=== PATIENT | female | born 1960 | race Caucasian/White ===

== ENCOUNTER 2017-01-31 16:53 | Inpatient (IN) | payer MEDICARE, SELFPAY ==
[~2017-01-31] VITALS: Ht 160 cm; Wt 86.8 kg
[~2017-01-31 16:53] MED LIST: ADULT LOW DOSE81 MG PO; ALLERCLEAR10 MG PO; BENADRYL 25MG C25 MG PO; CALCIUM 600 +1 EAC3 PO; COLACE 100MG C100 MG PO; DAKIN'S SOLUTI500 ML TOP; FLONASE 0.05% N16 GM; HUMALOG 10100 UNITS/ SQ; LANTUS SOL100 UNIT/1 SQ; LEVOTHYROXINE75 MCG PO; LISINOPRIL10 MG PO; LOPRESSOR 50 MG50 MG PO; NEURONTIN 100100 MG PO; PRAVACHOL20 MG PO; PRINIVIL10 MG PO; PROAIR HFA8.5 GM INH; SENOKOT-S TABL1 EACH PO; TYLENOL 325MG325 MG PO; ZANAFLEX 4 MG TA4 MG PO; ZOFRAN4 MG PO; ZYVOX600 MG PO
[2017-01-31 18:34] LABS: HEMOGLOBIN 11.7 gm/dl (12.3-15.3); RED BLOOD COUNT 4.17 M/UL (4.00-5.10)
[2017-01-31 18:52] LABS: BUN/CREATININE RATIO 8 (0-10)
[2017-02-01] MEDS ORDERED: CLARITIN 10MG T10 MG PO (03:41)
[2017-02-01] MEDS ORDERED: METOPROLOL TART50 MG PO (03:41)
[2017-02-01] MEDS ORDERED: NEURONTIN 100100 MG PO (03:42)
[2017-02-01] MEDS ORDERED: VENTOLIN/PROVE0.5 ML INH (03:43)
[2017-02-01] MEDS ORDERED: HUMALOG100 UNIT/1 SQ (03:45)
[2017-02-01] MEDS ORDERED: LANTUS100 UNIT/1 SQ (03:45)
[2017-02-01 07:20] LABS: HEMOGLOBIN 11.2 gm/dl (12.3-15.3); WHITE BLOOD COUNT 23.7 K/UL (4.5-11.0)
[2017-02-02 05:39] LABS: WHITE BLOOD COUNT 23.7 K/UL (4.5-11.0)
[2017-02-02 05:45] LABS: RED BLOOD COUNT 3.57 M/UL (4.00-5.10)
[2017-02-02 05:56] LABS: BUN/CREATININE RATIO 30 (0-10)
[2017-02-03 05:34] LABS: HEMOGLOBIN 10.2 gm/dl (12.3-15.3); RED BLOOD COUNT 3.68 M/UL (4.00-5.10)
[2017-02-03 05:35] LABS: WHITE BLOOD COUNT 16.5 K/UL (4.5-11.0)
[2017-02-03 05:59] LABS: BUN/CREATININE RATIO 20 (0-10)
[2017-02-04 05:55] LABS: HEMOGLOBIN 10.7 gm/dl (12.3-15.3); RED BLOOD COUNT 3.88 M/UL (4.00-5.10); WHITE BLOOD COUNT 17.9 K/UL (4.5-11.0)
[2017-02-04 06:14] LABS: BUN/CREATININE RATIO 8 (0-10)
[2017-02-05 06:41] LABS: BUN/CREATININE RATIO 10 (0-10)
[2017-02-05 06:55] LABS: HEMOGLOBIN 10.8 gm/dl (12.3-15.3); RED BLOOD COUNT 3.92 M/UL (4.00-5.10); WHITE BLOOD COUNT 14.4 K/UL (4.5-11.0)
[2017-02-06 05:09] LABS: HEMOGLOBIN 10.2 gm/dl (12.3-15.3); RED BLOOD COUNT 3.76 M/UL (4.00-5.10); WHITE BLOOD COUNT 14.1 K/UL (4.5-11.0)
[2017-02-06 05:16] LABS: BUN/CREATININE RATIO 10 (0-10)
[2017-02-07 06:56] LABS: HEMOGLOBIN 10.4 gm/dl (12.3-15.3); RED BLOOD COUNT 3.83 M/UL (4.00-5.10); WHITE BLOOD COUNT 12.5 K/UL (4.5-11.0)
[2017-02-07 07:19] LABS: BUN/CREATININE RATIO 13 (0-10)
[2017-02-08 06:16] LABS: HEMOGLOBIN 10.4 gm/dl (12.3-15.3); RED BLOOD COUNT 3.83 M/UL (4.00-5.10); WHITE BLOOD COUNT 10.1 K/UL (4.5-11.0)
[2017-02-08 06:42] LABS: BUN/CREATININE RATIO 14 (0-10)
[2017-02-09] MEDS ORDERED: COLACE 100MG C100 MG PO (20:43)
[2017-02-09] MEDS ORDERED: LORTAB 7.5-3251 EACH PO (20:45)
[2017-02-09] MEDS ORDERED: PROTONIX 40 MG40 MG PO ×2 (21:06→21:08)
[2017-02-09] MEDS ORDERED: LANTUS100 UNIT/1 SQ (21:29)
[2017-03-19] MEDS ORDERED: DOXYCYCLINE HY100 MG PO (08:46)
[2017-03-19] MEDS ORDERED: NEXIUM40 MG PO (08:46)
== END 2017-02-09 22:12 | disposition home or self-care (01) | DRG 580 ==
LOC: ER1 16:53 → M/S 23:43 → ZEROF 23:43 → M/S 02-01 03:16
PROVIDERS: Emergency Medicine; Internal Medicine Infectious Disease; Physician Assistant Medical; Surgery; ADMIT Internal Medicine
PROC: 0J960ZZ Drainage of Chest Subcutaneous Tissue and Fascia, Open Approach (ICD-10-PCS; principal; 2017-02-01 10:35)
DX: N61.1 Abscess of the breast and nipple (principal); N39.0 Urinary tract infection, site not specified; I10 Essential (primary) hypertension; J45.909 Unspecified asthma, uncomplicated; M79.7 Fibromyalgia; G62.9 Polyneuropathy, unspecified; K21.9 Gastro-esophageal reflux disease without esophagitis; K57.90 Diverticulosis of intestine, part unspecified, without perforation or abscess without bleeding; B96.89 Other specified bacterial agents as the cause of diseases classified elsewhere; E87.6 Hypokalemia; J01.90 Acute sinusitis, unspecified; K59.00 Constipation, unspecified; K20.9 Esophagitis, unspecified; E03.9 Hypothyroidism, unspecified; R13.10 Dysphagia, unspecified; R13.13 Dysphagia, pharyngeal phase; E11.65 Type 2 diabetes mellitus with hyperglycemia; Z86.14 Personal history of Methicillin resistant Staphylococcus aureus infection; Z90.710 Acquired absence of both cervix and uterus; Z88.0 Allergy status to penicillin; Z88.2 Allergy status to sulfonamides; Z80.3 Family history of malignant neoplasm of breast; Z83.3 Family history of diabetes mellitus; Z84.1 Family history of disorders of kidney and ureter; Z84.89 Family history of other specified conditions
CPT/HCPCS: 36415; 71260; 74022; 80048; 80053; 80202; 81001; 82962; 83036; 83605; 83690; 83735; 84443; 84484; 85025; 85027; 87040; 87070; 87077; 87086; 87186; 87205; 93005; 94640; 94664; 96374; 96375; 99284; J0690; J0692; J0696; J1200; J1885; J1956; J2270; J2405; J2550; J2930; J3370; J7050; J7070; J7120; Q9962

== ENCOUNTER → 2017-02-10 | Outpatient (CLI) | payer MEDICARE, SELFPAY ==
[~2017-02-10] MED LIST changes: +CLARITIN 10MG T10 MG PO; +DOXYCYCLINE HY100 MG PO; +HUMALOG100 UNIT/1 SQ; +LANTUS100 UNIT/1 SQ; +LORTAB 7.5-3251 EACH PO; +METOPROLOL TART50 MG PO; +NEXIUM40 MG PO; +PROTONIX 40 MG40 MG PO; +VENTOLIN/PROVE0.5 ML INH
== END ==
LOC: OPSV 08:30
DX: N61.1 Abscess of the breast and nipple (principal); B95.61 Methicillin susceptible Staphylococcus aureus infection as the cause of diseases classified elsewhere
CPT/HCPCS: 96365; J0696

== ENCOUNTER → 2017-02-11 | Outpatient (CLI) | payer MEDICARE, SELFPAY ==
[~2017-02-11] VITALS: Ht 160 cm; Wt 81.6 kg
== END ==
LOC: OPSV 09:33
DX: N61.1 Abscess of the breast and nipple (principal); B95.61 Methicillin susceptible Staphylococcus aureus infection as the cause of diseases classified elsewhere
CPT/HCPCS: 96365; J0696

== ENCOUNTER → 2017-02-12 | Outpatient (CLI) | payer MEDICARE, SELFPAY | LOC: OPSV 09:51 | DX: N61.1 Abscess of the breast and nipple (principal); B95.61 Methicillin susceptible Staphylococcus aureus infection as the cause of diseases classified elsewhere | CPT/HCPCS: 96365; J0696 ==

== ENCOUNTER → 2017-02-13 | Outpatient (CLI) | payer MEDICARE, SELFPAY ==
[~2017-02-13] VITALS: Ht 160 cm; Wt 81.6 kg
== END ==
LOC: OPSV 09:49
DX: N61.1 Abscess of the breast and nipple (principal); B95.61 Methicillin susceptible Staphylococcus aureus infection as the cause of diseases classified elsewhere
CPT/HCPCS: 96365; J0696

== ENCOUNTER → 2017-02-14 | Outpatient (CLI) | payer MEDICARE, SELFPAY ==
[~2017-02-14] VITALS: Ht 160 cm; Wt 81.6 kg
== END ==
LOC: OPSV 09:46
DX: N61.1 Abscess of the breast and nipple (principal); B95.61 Methicillin susceptible Staphylococcus aureus infection as the cause of diseases classified elsewhere
CPT/HCPCS: 96365; J0696

== ENCOUNTER → 2017-02-15 | Outpatient (CLI) | payer MEDICARE, SELFPAY ==
[~2017-02-15] VITALS: Ht 160 cm; Wt 81.6 kg
== END ==
LOC: OPSV 09:32
DX: N61.1 Abscess of the breast and nipple (principal); B95.61 Methicillin susceptible Staphylococcus aureus infection as the cause of diseases classified elsewhere
CPT/HCPCS: 96365; J0696

== ENCOUNTER → 2017-02-16 | Outpatient (CLI) | payer MEDICARE, SELFPAY | LOC: OPSV 07:55 | DX: N61.1 Abscess of the breast and nipple (principal); B95.61 Methicillin susceptible Staphylococcus aureus infection as the cause of diseases classified elsewhere | CPT/HCPCS: 96365; J0696 ==

== ENCOUNTER → 2017-02-17 | Outpatient (CLI) | payer MEDICARE, SELFPAY ==
[~2017-02-17] VITALS: Ht 160 cm; Wt 81.6 kg
== END ==
LOC: OPSV 07:54
DX: N61.1 Abscess of the breast and nipple (principal); B95.61 Methicillin susceptible Staphylococcus aureus infection as the cause of diseases classified elsewhere
CPT/HCPCS: 96365; J0696

== ENCOUNTER → 2017-02-18 | Outpatient (CLI) | payer MEDICARE, SELFPAY ==
[~2017-02-18] VITALS: Ht 160 cm; Wt 81.6 kg
== END ==
LOC: OPSV 12:13
DX: N61.1 Abscess of the breast and nipple (principal); B95.61 Methicillin susceptible Staphylococcus aureus infection as the cause of diseases classified elsewhere
CPT/HCPCS: 96365; G0463; J0696

== ENCOUNTER → 2017-02-19 | Outpatient (CLI) | payer MEDICARE, SELFPAY | LOC: OPSV 06:53 | DX: N61.1 Abscess of the breast and nipple (principal) | CPT/HCPCS: G0463 ==

== ENCOUNTER → 2017-02-20 | Outpatient (CLI) | payer MEDICARE, SELFPAY | LOC: OPSV 06:48 | DX: N61.1 Abscess of the breast and nipple (principal) | CPT/HCPCS: G0463 ==

== ENCOUNTER → 2017-02-22 | Outpatient (CLI) | payer MEDICARE, SELFPAY | LOC: OPSV 07:00 | DX: N61.1 Abscess of the breast and nipple (principal) | CPT/HCPCS: G0463 ==

== ENCOUNTER → 2017-02-23 | Outpatient (CLI) | payer MEDICARE, SELFPAY | LOC: OPSV 08:22 | DX: N61.1 Abscess of the breast and nipple (principal) | CPT/HCPCS: G0463 ==

== ENCOUNTER → 2017-02-24 | Outpatient (CLI) | payer MEDICARE, SELFPAY | LOC: OPSV 08:30 | DX: N61.1 Abscess of the breast and nipple (principal) | CPT/HCPCS: G0463 ==

== ENCOUNTER → 2017-02-25 | Outpatient (CLI) | payer MEDICARE, OTHER | LOC: OPSV 06:37 | DX: N61.1 Abscess of the breast and nipple (principal) | CPT/HCPCS: G0463 ==

== ENCOUNTER → 2017-02-26 | Outpatient (CLI) | payer MEDICARE, OTHER | LOC: OPSV 07:00 | DX: N61.1 Abscess of the breast and nipple (principal) | CPT/HCPCS: G0463 ==

== ENCOUNTER → 2017-02-27 | Outpatient (CLI) | payer MEDICARE, OTHER | LOC: OPSV 07:00 | DX: N61.1 Abscess of the breast and nipple (principal) | CPT/HCPCS: G0463 ==

== ENCOUNTER → 2017-02-28 | Outpatient (CLI) | payer MEDICARE, OTHER | LOC: OPSV 07:00 | DX: N61.1 Abscess of the breast and nipple (principal) | CPT/HCPCS: 87070; 87077; 87186; 87205; G0463 ==

== ENCOUNTER → 2017-03-01 | Outpatient (CLI) | payer MEDICARE, OTHER | LOC: OPSV 06:59 | DX: N61.1 Abscess of the breast and nipple (principal) | CPT/HCPCS: G0463 ==

== ENCOUNTER → 2017-03-02 | Outpatient (CLI) | payer MEDICARE, OTHER | LOC: OPSV 07:00 | DX: N61.1 Abscess of the breast and nipple (principal) | CPT/HCPCS: G0463 ==

== ENCOUNTER → 2017-03-03 | Outpatient (CLI) | payer MEDICARE, OTHER | LOC: OPSV 07:00 | DX: N61.1 Abscess of the breast and nipple (principal) | CPT/HCPCS: G0463 ==

== ENCOUNTER → 2017-03-04 | Outpatient (CLI) | payer MEDICARE, OTHER | LOC: OPSV 06:47 | DX: N61.1 Abscess of the breast and nipple (principal) | CPT/HCPCS: G0463 ==

== ENCOUNTER → 2017-03-06 | Outpatient (CLI) | payer MEDICARE, OTHER | LOC: OPSV 06:45 | DX: N61.1 Abscess of the breast and nipple (principal) | CPT/HCPCS: G0463 ==

== ENCOUNTER → 2017-03-07 | Outpatient (CLI) | payer MEDICARE, MEDICAID | LOC: OPSV 06:40 | DX: N61.1 Abscess of the breast and nipple (principal) | CPT/HCPCS: G0463 ==

== ENCOUNTER → 2017-03-08 | Outpatient (CLI) | payer MEDICARE, OTHER | LOC: OPSV 06:52 | DX: N61.1 Abscess of the breast and nipple (principal) | CPT/HCPCS: G0463 ==

== ENCOUNTER → 2017-03-09 | Outpatient (CLI) | payer MEDICARE, OTHER | LOC: OPSV 08:30 | DX: N61.1 Abscess of the breast and nipple (principal) | CPT/HCPCS: G0463 ==

== ENCOUNTER → 2017-03-10 | Outpatient (CLI) | payer MEDICARE, OTHER | LOC: OPSV 08:30 | DX: N61.1 Abscess of the breast and nipple (principal) | CPT/HCPCS: G0463 ==

== ENCOUNTER → 2017-03-11 | Outpatient (CLI) | payer MEDICARE, OTHER | LOC: OPSV 06:47 | DX: N61.1 Abscess of the breast and nipple (principal) | CPT/HCPCS: G0463 ==

== ENCOUNTER → 2017-03-12 | Outpatient (CLI) | payer MEDICARE, OTHER | LOC: OPSV 06:45 | DX: N61.1 Abscess of the breast and nipple (principal) | CPT/HCPCS: G0463 ==

== ENCOUNTER → 2017-03-13 | Outpatient (CLI) | payer MEDICARE, OTHER | LOC: OPSV 07:00 | DX: N61.1 Abscess of the breast and nipple (principal) | CPT/HCPCS: G0463 ==

== ENCOUNTER → 2017-03-15 | Outpatient (CLI) | payer MEDICARE, OTHER | LOC: OPSV 07:00 | DX: N61.1 Abscess of the breast and nipple (principal) | CPT/HCPCS: G0463 ==

== ENCOUNTER → 2017-03-16 | Outpatient (CLI) | payer MEDICARE, OTHER | LOC: OPSV 07:00 | DX: N61.1 Abscess of the breast and nipple (principal) | CPT/HCPCS: G0463 ==

== ENCOUNTER → 2017-03-17 | Outpatient (CLI) | payer MEDICARE, OTHER | LOC: OPSV 07:00 | DX: N61.1 Abscess of the breast and nipple (principal) | CPT/HCPCS: G0463 ==

== ENCOUNTER → 2017-03-18 | Outpatient (CLI) | payer MEDICARE, OTHER | LOC: OPSV 07:00 | DX: N61.1 Abscess of the breast and nipple (principal) | CPT/HCPCS: G0463 ==

== ENCOUNTER → 2017-03-19 | Day surgery (SDC) | payer MEDICARE, OTHER ==
[~2017-03-19] VITALS: Ht 160 cm; Wt 83.0 kg
== END | disposition home or self-care (01) ==
LOC: OR 07:05
PROVIDERS: Internal Medicine Gastroenterology
PROC: 0DB68ZX Excision of Stomach, Via Natural or Artificial Opening Endoscopic, Diagnostic (ICD-10-PCS; principal; 2017-03-19 10:45)
DX: K21.0 Gastro-esophageal reflux disease with esophagitis (principal); K22.9 Disease of esophagus, unspecified; I10 Essential (primary) hypertension; E11.9 Type 2 diabetes mellitus without complications; E66.9 Obesity, unspecified; Z88.0 Allergy status to penicillin; Z88.2 Allergy status to sulfonamides; Z88.8 Allergy status to other drugs, medicaments and biological substances; Z79.4 Long term (current) use of insulin; Z79.82 Long term (current) use of aspirin; Z79.899 Other long term (current) drug therapy; Z98.51 Tubal ligation status; Z90.710 Acquired absence of both cervix and uterus
CPT/HCPCS: 82962; J2250; J3010; J7030

== ENCOUNTER → 2017-03-20 | Outpatient (CLI) | payer MEDICARE, OTHER | LOC: OPSV 07:00 | DX: N61.1 Abscess of the breast and nipple (principal) | CPT/HCPCS: G0463 ==

== ENCOUNTER → 2020-11-28 | Outpatient (CLI) | payer MEDICARE, OTHER ==
[~2020-11-28] MED LIST changes: +ASPIRIN EC81 MG PO; +BRILINTA 90 MG90 MG PO; +BYDUREON P2 MG/0.65 SQ; +CRESTOR10 MG PO; +EXTINA50 GM TP; +TRESIBA100 UNIT/1 SQ; +ZANAFLEX2 MG PO
== END ==
LOC: MAMO 10:45
DX: Z12.31 Encounter for screening mammogram for malignant neoplasm of breast (principal)
CPT/HCPCS: 77063; 77067

== ENCOUNTER → 2021-03-16 | Outpatient (CLI) | payer MEDICARE ==
[~2021-03-16] VITALS: Ht 160 cm; Wt 88.9 kg
== END ==
LOC: OPSV 10:53
DX: M81.0 Age-related osteoporosis without current pathological fracture (principal)
CPT/HCPCS: 96372

== ENCOUNTER → 2021-04-25 | Outpatient (CLI) | payer MEDICARE | LOC: DTC 12:30 | DX: E11.9 Type 2 diabetes mellitus without complications (principal) | CPT/HCPCS: G0108 ==

== ENCOUNTER → 2021-05-11 | Outpatient (CLI) | payer MEDICARE | LOC: EXRD 14:07 | DX: M79.604 Pain in right leg (principal); M79.605 Pain in left leg | CPT/HCPCS: 93922; 93925 ==

== ENCOUNTER → 2021-06-27 | Outpatient (CLI) | payer MEDICARE | LOC: HEART 5 08:00 | DX: I20.9 Angina pectoris, unspecified (principal) | CPT/HCPCS: 78452; A9502; J2785 ==

== ENCOUNTER → 2021-12-25 | Outpatient (CLI) | payer MEDICARE, OTHER | LOC: MAMO 12:34 | DX: Z12.31 Encounter for screening mammogram for malignant neoplasm of breast (principal) | CPT/HCPCS: 77063; 77067 ==

== ENCOUNTER → 2022-03-08 | Outpatient (CLI) | payer MEDICARE | LOC: EXRD 11:22 | DX: M54.50 Low back pain, unspecified (principal); M51.36 Other intervertebral disc degeneration, lumbar region | CPT/HCPCS: 72110 ==